=== PATIENT | female | born 1970 | race Asian ===

== ENCOUNTER 2024-10-22 16:37 | Emergency (ER) | payer BC, OTHER ==
[~2024-10-22] VITALS: Ht 165.1 cm; Wt 60.0 kg
[2024-10-22 16:40] VITALS: TEMP 36.7; O2SAT 99
[2024-10-22] MEDS ORDERED: IBUP-2029 MT (18:20)
[2024-10-22] MEDS ORDERED: CYCL10TA21 MT (18:20)
[2024-10-22] MEDS: ACETAMINOPHEN 325MG TABLET PO ONE (18:38)
[2024-10-22] MEDS: CYCLOBENZAPRINE 10MG TABLET PO ONE (18:38)
[2024-10-22 18:50] VITALS: BP 111/66; PULSE 72; RESP 16; O2SAT 100
== END 2024-10-22 18:52 | disposition home or self-care (01) ==
LOC: ER 16:37
DX: M54.2 Cervicalgia (principal); M25.512 Pain in left shoulder; M79.661 Pain in right lower leg; M79.662 Pain in left lower leg; F19.90 Other psychoactive substance use, unspecified, uncomplicated
CPT/HCPCS: 72131; 99284